=== PATIENT | male | born 1975 | race Caucasian/White ===

== ENCOUNTER 2017-05-20 15:45 | Emergency (ER) | payer BC ==
[~2017-05-20] VITALS: Ht 188 cm; Wt 108.9 kg
[2017-05-20 15:51] VITALS: BP 157/75
[2017-05-20] MEDS ORDERED: BUPIVACAINE MPF 0.5% 30 ML VIAL. SQ ONE (16:15)
[2017-05-20] MEDS ORDERED: AMOXICILLIN/K CLAV 875/125MG TABLET. PO ONE (16:45)
--- NOTE | 2017-05-20 17:11 | PHYS DOC ---
Past History Past Medical History: No Pertinent History Past Surgical History: No Surgical History Alcohol Use: None Drug Use: None Adult General Chief Complaint Chief Complaint: FINGER INJURY HPI HPI Patient is a 42 year old M who presents with left fifth finger injury. Chau states that just prior to arrival his left fifth finger was crushed while working with a [employer]. He states that his finger was deformed. He applied traction and straightened his finger. He has normal sensation. He has no other associated injuries. He has no other associated symptoms. His pain is worse with movement and palpation. His pain is improved with rest and positioning. Review of Systems Review of Systems Constitutional: Denies fever or chills [] Eyes: Denies change in visual acuity, redness, or eye pain [] HENT: Denies nasal congestion or sore throat [] Respiratory: Denies cough or shortness of breath [] Cardiovascular: No additional information not addressed in HPI [] GI: Denies abdominal pain, nausea, vomiting, bloody stools or diarrhea [] : Denies dysuria or hematuria [] Musculoskeletal: Denies back pain Integument: Denies rash or skin lesions [] Neurologic: Denies headache, focal weakness or sensory changes [] Endocrine: Denies polyuria or polydipsia [] All other systems were reviewed and found to be within normal limits, except as documented in this note. Family History Family History No pertinent family medical history was reported Current Medications Current Medications Current Medications Medications (Trade) Dose Ordered Sig/Sumit Start Time Stop Time Status Last Admin Dose Admin Amoxicillin/ Clavulanate Potassium (Augmentin 875/ 125mg) 1 tab 1X ONCE 05/20/17 16:45 05/20/17 16:46 DC Bupivacaine HCl (Sensorcaine Mpf 0.5%) 30 ml 1X ONCE 05/20/17 16:15 05/20/17 16:16 DC Allergies Allergies Allergies Coded Allergies Type Severity Reaction Last Updated Verified No Known Drug Allergies 05/20/17 No Physical Exam Physical Exam Constitutional: Well developed, well nourished, no acute distress, non-toxic appearance. [] HENT: Normocephalic, atraumatic Eyes: EOMI, conjunctiva normal, no discharge. [] Neck: Normal range of motion, no tenderness, supple, no stridor. [] Cardiovascular:Heart rate regular rhythm, Lungs & Thorax: Bilateral breath sounds clear to auscultation [] Skin: Warm, dry, no erythema, no rash. [] Extremities: Left hand: Shortening of the fifth finger with moderate swelling in the proximal fifth phalanx noted. Tenderness to palpation in the described area. Range of motion limited due to pain. Strength testing limited due to pain. Neurovascularly intact with a small opened bleeding wound Neurologic: Alert and oriented X 3, normal motor function, normal sensory function, no focal deficits noted. [] Psychologic: Affect normal, judgement normal, mood normal. [] Current Patient Data Vital Signs Vital Signs Date Time Temp Pulse Resp B/P (MAP) Pulse Ox O2 Delivery O2 Flow Rate FiO2 05/20/17 15:51 98.3 70 16 96 Room Air EKG EKG [] Radiology/Procedures Radiology/Procedures Left hand x-ray Impressions: Proximal fifth phalanx fracture without dislocation Course & Med Decision Making Course & Med Decision Making Pertinent Labs and Imaging studies reviewed. (See chart for details) Chau was started on antibiotics. His finger was splinted. Hand surgery was contacted by phone. Dragon Disclaimer Dragon Disclaimer This electronic medical record was generated, in whole or in part, using a voice recognition dictation system. Departure Departure: Impression: Primary Impression: Open fracture of phalanx of finger of left hand Disposition: XF OTHER Condition: STABLE Referrals: AZUL SHABAZZ (PCP) Patient Instructions: Finger Fracture (Phalangeal)-[facility] Additional Instructions: Chau was seen in the emergency department for finger injury. He was found to have an open fracture of the fifth finger on his left hand. He was placed in a splint and started on antibiotics. He was transferred to emergency department for further management after a were contacted by phone. Problem Qualifiers Primary Impression: Open fracture of phalanx of finger of left hand Encounter type: initial encounter Finger: little finger Phalanx: proximal Fracture alignment: nondisplaced Qualified Codes: S62.647B - Nondisplaced fracture of proximal phalanx of left little finger, initial encounter for open fracture ASHVIN HUTCHINSON MD May 20, 2017 17:11
--- NOTE | 2017-05-21 10:51 | RAD ---
EXAM: Left 5th finger 4 views. HISTORY: Smashed 5th finger. COMPARISON: None. FINDINGS: There is a comminuted dorsally displaced, dorsally angulated fracture of the 5th proximal phalangeal diaphysis. A linear density projects within the dorsal soft tissues of the hand along the 5th metacarpal measuring 6 x 1 mm. Other joint spaces and alignment are maintained. IMPRESSION: 1. Comminuted dorsally displaced and angulated fracture of the 5th proximal phalanx. 2. Correlate for a 6 x 1 mm foreign body within the dorsal soft tissues overlying the 5th metacarpal.
== END 2017-05-20 17:52 | disposition short-term general hospital (02) ==
LOC: ER 15:45
DX: S62.647B Nondisplaced fracture of proximal phalanx of left little finger, initial encounter for open fracture (principal); W55.09XA Other contact with cat, initial encounter; Y93.89 Activity, other specified; Y99.8 Other external cause status; Y92.89 Other specified places as the place of occurrence of the external cause
CPT/HCPCS: 29130; 73140; 99285-25